=== PATIENT | female | born 1990 | race African-American/Black ===

== ENCOUNTER 2016-09-19 01:43 | Emergency (ER) | payer OTHER ==
--- NOTE | ~2016-09-19 | CT4 ---
[facility] A Service of [facility] RADIOLOGY TEXT RESULTS PATIENT: NOELLE PARISI LOCATION: [place] : [birth year] UNIT #: [id number] AGE: [address]: Dwayne Alston MD SEX: F ORDER DR: [id number] [facility] [place] [facility]. [place], [place] [address] [id number] E MR#: [id number] Acc #: [id number] NAME: NOELLE PARISI : 1990 SEX: F STUDY DATE/TIME: 09/19/2016 2:50 UNIT: [facility] ROOM: STUDY DESCRIPTION: CT Abd and Pelv Wo Cont Attending Physician: Dwayne Alston M.D. Ordering Physician: Dwayne Alston M.D. Primary Care Physician: Primary Care Physician No MEDICAL IMAGING REPORT This report is preliminary unless electronic signature is present EXAM CT abdomen and pelvis without contrast INDICATIONS Right side abdominal pain for the past [address] of the abdomen and pelvis. This CT exam was performed with one or more of the following radiation dose reduction techniques: automatic exposure control, adjustment of mA and/or kV according to patient size, and iterative reconstruction. COMPARISON 07/26/2015 FINDINGS Abdomen without contrast. Included lung bases are clear. The liver, spleen, adrenal glands, pancreas, gallbladder show no acute abnormality. Bowel loops are nondilated. Appendix is normal. There is moderate left hydroureteronephrosis. Pelvis without contrast: Bladder is decompressed. There is a Rdz catheter in place. Possible 5 mm calculus along the superior extent of the Rdz catheter balloon. No other bladder calculus seen. No pelvic mass. No aggressive appearing bone lesion. IMPRESSION 1. Moderate left hydroureteronephrosis. 2. Possible 5 mm calculus in the bladder, just above the Rdz catheter balloon. [facility] A Service of [facility] RADIOLOGY TEXT RESULTS PATIENT: NOELLE PARISI LOCATION: [place] : [birth year] UNIT #: [id number] AGE: [address]: Dwayne Alston MD SEX: F ORDER DR: Dictated by... Rajinder Vasquez M.D. THIS IS AN ELECTRONICALLY VERIFIED REPORT Rajinder Vasquez M.D. at 09/22/2016 7:29 AM Gallo TD: 09/19/2016 06:48 JOB #: [id number] MEDICAL IMAGING REPORT Page 1 of 1 COPY
[~2016-09-19 01:43] MED LIST: CIPRO PO; FLAGYL PO; PHENERGAN SUPP25 MG PR; PRILOSEC PO; SOOTHE262 MG PO; TETRACYCLINE PO; VOLTAREN50 MG PO
[2016-09-19 01:52] LABS: BASOPHIL# 0.1 X10e3 (0-0.3); BASOPHIL% 0.8 % (0-2.5); EOSINOPHIL# 0.2 X10e3 (0-0.7); EOSINOPHIL% 1.4 % (0.0-7.0); HEMATOCRIT 40.9 % (35.0-45.0); HEMOGLOBIN 13.6 gm/dL (12.0-16.0); LYMPHOCYTE# 2.8 X10e3 (1.0-3.5); LYMPHOCYTE% 21.9 % (17.0-45.0); MEAN CELL VOLUME 86.3 FL (83-96); MEAN CORPUSCULAR HEMOGLOBIN 28.7 PG (28-34); MEAN CORPUSCULAR HGB CONC 33.3 g/dL (30-36); MEAN PLATELET VOLUME 7.8 FL (6.5-11.5); MONOCYTE# 0.9 X10e3 (0-1.0); MONOCYTE% 6.9 % (3.0-12.0); NEUTROPHIL# 8.7 X10e3 (1.5-7.1); PLATELET COUNT 304 X10e3 (140-420); RED BLOOD COUNT 4.74 X10e (3.90-5.30); RED CELL DISTRIBUTION WIDTH 13.1 % (11.0-15.5); WHITE BLOOD COUNT 12.6 X10e3 (4.0-10.5)
[2016-09-19 01:53] LABS: DIFF IND NO
[2016-09-19 02:10] LABS: URINE SOURCE CLEAN CATCH
[2016-09-19 02:16] LABS: ALBUMIN SERUM 4.6 g/dL (3.5-5.0); ALKALINE PHOSPHATASE 66 U/L (32-92); ALT (SGPT) 22 U/L (10-40); AST (SGOT) 30 U/L (10-42); BILIRUBIN,TOTAL 0.3 mg/dL (0.2-2.0); BLOOD UREA NITROGEN 10 mg/dL (9-23); CALCIUM SERUM 9.2 mg/dL (8.4-10.2); CARBON DIOXIDE 23 mmol/L (22-31); CHLORIDE 105 mmol/L (100-111); CREATININE SERUM 0.8 mg/dL (0.6-1.4); GLOM FILT RATE Estimated 119.7 mL/min (>60); GLUCOSE FASTING 68 mg/dL (70-110); LIPASE 15 U/L (22-51); POTASSIUM 3.6 mmol/L (3.5-5.1); PROTEIN TOTAL SERUM 8.6 g/dL (6.0-8.3); SODIUM 137 mmol/L (135-145)
[2016-09-19 02:16] LABS: URINE APPEARANCE CLEAR; URINE BILIRUBIN NEG (NEG); URINE BLOOD NEG (NEG); URINE COLOR YELLOW; URINE GLUCOSE NEG (NEG); URINE KETONE NEG (NEG); URINE LEUKOCYTE ESTERASE NEG (NEG); URINE NITRATE NEG (NEG); URINE PH 6.5 (5-8); URINE PROTEIN NEG (NEG); URINE SPECIFIC GRAVITY 1.005 (1.003-1.035); URINE UROBILINOGEN 0.2 MG/DL (NEG)
[2016-09-19 02:20] LABS: CULTURE INDICATED? NO
[2016-09-19 02:20] LABS: BILIRUBIN, DIRECT <0.1 mg/dL (0.0-0.2); BILIRUBIN,INDIRECT 0.2 mg/dL (0.0-0.9)
== END 2016-09-19 03:43 | disposition home or self-care (01) ==
LOC: CED 01:43
PROVIDERS: Emergency Medicine
DX: R33.9 Retention of urine, unspecified (principal); N13.2 Hydronephrosis with renal and ureteral calculous obstruction; F41.9 Anxiety disorder, unspecified; F17.200 Nicotine dependence, unspecified, uncomplicated; Z88.6 Allergy status to analgesic agent; Z88.8 Allergy status to other drugs, medicaments and biological substances; Z79.899 Other long term (current) drug therapy
CPT/HCPCS: 36415; 51702; 74176; 80048; 80076; 81003; 83690; 84703; 85025; 96361; 96374; 96375; 99284; J2270; J2765

== ENCOUNTER 2016-09-21 19:23 | Emergency (ER) | payer OTHER ==
--- NOTE | ~2016-09-21 | CT4 ---
[facility] A Service of [facility] RADIOLOGY TEXT RESULTS PATIENT: NOELLE PARISI LOCATION: [facility] : [birth year] UNIT #: [id number] AGE: [address]: Ada Davila MD SEX: F ORDER DR: [id number] [facility] [address] [facility] [place] [facility]. [place], [place] [address] [id number] E MR#: [id number] Acc #: [id number] NAME: NOELLE PARISI : 1990 SEX: F STUDY DATE/TIME: 09/21/2016 21:52 UNIT: [facility] ROOM: STUDY DESCRIPTION: CT Abd and Pelv Wo Cont Attending Physician: Aad Davila M.D. Ordering Physician: Ada Davila M.D. Primary Care Physician: Primary Care Physician No MEDICAL IMAGING REPORT This report is preliminary unless electronic signature is present EXAM CT abdomen and pelvis, 09/21/2016 at 21:52 INDICATIONS Left flank pain for 1 week. Pain currently 10 out of 10. Recent diagnosis of kidney stone. TECHNIQUE Axial noncontrast images were obtained through the abdomen and pelvis. Multiplanar reformats were obtained. Comparison made with 09/19/2016. This CT exam was performed with one or more of the following radiation dose reduction techniques: automatic exposure control, adjustment of mA and/or kV according to patient size, and iterative reconstruction. FINDINGS ABDOMEN: Lung bases remain clear. The gallbladder is normal. There is persistent mild left hydronephrosis and hydroureter. No definite obstructing stone is seen. No stones are seen within the kidneys. The unenhanced solid organs are otherwise normal. Unopacified GI tract is normal. PELVIS: The bladder is decompressed around a Rdz catheter. No lower ureteral stones are seen. The appendix is normal. The remainder of the unopacified GI tract is normal as well. The uterus is retroflexed. Solid pelvic organs are grossly normal. IMPRESSION 1. Persistent mild left hydronephrosis. No obstructing stones are identified. Previously seen stone near the left UVJ is not identified on the current study. Urinary bladder is decompressed by [facility] A Service of [facility] RADIOLOGY TEXT RESULTS PATIENT: NOELLE PARISI LOCATION: [facility] : [birth year] UNIT #: [id number] AGE: [address]: Ada Davila MD SEX: F ORDER DR: pasquale Rdz. 2. Normal unopacified GI tract including the appendix. Dictated by... Fredy Bui Jr., M.D. THIS IS AN ELECTRONICALLY VERIFIED REPORT Fredy Bui Jr., M.D. at 09/22/2016 6:01 AM PAUL/chago TD: 09/22/2016 04:39 JOB #: [id number] MEDICAL IMAGING REPORT Page 1 of 1 COPY
[2016-09-21 20:33] LABS: BASOPHIL# 0.2 X10e3 (0-0.3); BASOPHIL% 1.3 % (0-2.5); EOSINOPHIL# 0.3 X10e3 (0-0.7); HEMOGLOBIN 13.7 gm/dL (12.0-16.0); LYMPHOCYTE# 2.8 X10e3 (1.0-3.5); LYMPHOCYTE% 20.9 % (17.0-45.0); MEAN CELL VOLUME 86.7 FL (83-96); MEAN CORPUSCULAR HGB CONC 33.5 g/dL (30-36); MEAN PLATELET VOLUME 8.3 FL (6.5-11.5); MONOCYTE# 0.8 X10e3 (0-1.0); MONOCYTE% 5.6 % (3.0-12.0); NEUTROPHIL# 9.5 X10e3 (1.5-7.1); NEUTROPHIL% 70.2 % (40-75); PLATELET COUNT 269 X10e3 (140-420); RED BLOOD COUNT 4.73 X10e (3.90-5.30); RED CELL DISTRIBUTION WIDTH 12.7 % (11.0-15.5); WHITE BLOOD COUNT 13.6 X10e3 (4.0-10.5)
[2016-09-21 20:40] LABS: URINE APPEARANCE CLEAR; URINE BILIRUBIN NEG (NEG); URINE BLOOD NEG (NEG); URINE COLOR YELLOW; URINE GLUCOSE NEG (NEG); URINE KETONE NEG (NEG); URINE LEUKOCYTE ESTERASE NEG (NEG); URINE NITRATE NEG (NEG); URINE PROTEIN NEG (NEG); URINE SPECIFIC GRAVITY 1.001 (1.003-1.035); URINE UROBILINOGEN 0.2 MG/DL (NEG)
[2016-09-21 20:47] LABS: URINE SOURCE CATH
[2016-09-21 20:48] LABS: CULTURE INDICATED? NO
[2016-09-21 20:50] LABS: AMPHETAMINE NEG (NEG); BARBITURATES NEG (NEG); BENZODIAZEPINES POS (NEG); COCAINE NEG (NEG); MARIJUANA POS (NEG); OPIATES POS (NEG); TRICYCLIC ANTIDEPRESSANTS NEG (NEG); U METHADONE NEG (NEG)
[2016-09-21 20:52] LABS: ALBUMIN SERUM 4.7 g/dL (3.5-5.0); ALKALINE PHOSPHATASE 64 U/L (32-92); ALT (SGPT) 17 U/L (10-40); AST (SGOT) 20 U/L (10-42); BILIRUBIN,TOTAL 0.8 mg/dL (0.2-2.0); BLOOD UREA NITROGEN 7 mg/dL (9-23); CALCIUM SERUM 9.4 mg/dL (8.4-10.2); CARBON DIOXIDE 23 mmol/L (22-31); CHLORIDE 102 mmol/L (100-111); CREATININE SERUM 0.7 mg/dL (0.6-1.4); GLOM FILT RATE Estimated 140.5 mL/min (>60); GLUCOSE FASTING 61 mg/dL (70-110); POTASSIUM 3.5 mmol/L (3.5-5.1); PROTEIN TOTAL SERUM 8.7 g/dL (6.0-8.3); SODIUM 135 mmol/L (135-145)
[2016-09-21 20:53] LABS: BILIRUBIN, DIRECT <0.1 mg/dL (0.0-0.2); BILIRUBIN,INDIRECT 0.7 mg/dL (0.0-0.9)
[2016-09-21 20:58] LABS: DIFF IND NO
== END 2016-09-21 23:40 | disposition home or self-care (01) ==
LOC: CED 19:23
PROVIDERS: Emergency Medicine
DX: R33.9 Retention of urine, unspecified (principal)
CPT/HCPCS: 51702; 74176; 80048; 80076; 80307; 81003; 84703; 85025; 96361; 96374; 96375; 99284; J2270; J2550

== ENCOUNTER 2016-09-27 01:04 | Emergency (ER) | payer OTHER ==
[2016-09-27 01:48] LABS: URINE SOURCE CLEAN CATCH
[2016-09-27 02:12] LABS: URINE APPEARANCE CLEAR; URINE BILIRUBIN NEG (NEG); URINE BLOOD NEG (NEG); URINE COLOR YELLOW; URINE GLUCOSE NEG (NEG); URINE KETONE NEG (NEG); URINE LEUKOCYTE ESTERASE TRACE (NEG); URINE NITRATE NEG (NEG); URINE PH 5.5 (5-8); URINE PROTEIN NEG (NEG); URINE UROBILINOGEN 0.2 MG/DL (NEG)
[2016-09-27 02:16] LABS: CULTURE INDICATED? NO
[2016-09-27 02:19] LABS: BASOPHIL# 0.1 X10e3 (0-0.3); BASOPHIL% 0.7 % (0-2.5); DIFF IND YES; EOSINOPHIL# 0.2 X10e3 (0-0.7); EOSINOPHIL% 1.3 % (0.0-7.0); HEMATOCRIT 41.4 % (35.0-45.0); HEMOGLOBIN 13.6 gm/dL (12.0-16.0); LYMPHOCYTE# 2.9 X10e3 (1.0-3.5); LYMPHOCYTE% 18.2 % (17.0-45.0); MEAN CELL VOLUME 86.5 FL (83-96); MEAN CORPUSCULAR HEMOGLOBIN 28.5 PG (28-34); MEAN CORPUSCULAR HGB CONC 32.9 g/dL (30-36); MEAN PLATELET VOLUME 7.8 FL (6.5-11.5); MONOCYTE# 0.8 X10e3 (0-1.0); MONOCYTE% 5.2 % (3.0-12.0); NEUTROPHIL# 11.9 X10e3 (1.5-7.1); NEUTROPHIL% 74.6 % (40-75); PLATELET COUNT 355 X10e3 (140-420); RED BLOOD COUNT 4.78 X10e (3.90-5.30); RED CELL DISTRIBUTION WIDTH 12.8 % (11.0-15.5)
[2016-09-27 02:35] LABS: ALBUMIN SERUM 4.9 g/dL (3.5-5.0); BILIRUBIN, DIRECT 0.1 mg/dL (0.0-0.2); BILIRUBIN,INDIRECT 0.8 mg/dL (0.0-0.9); BILIRUBIN,TOTAL 0.9 mg/dL (0.2-2.0); BUN/CREATININE RATIO 18.33; CALCIUM SERUM 9.4 mg/dL (8.4-10.2); CREATININE SERUM 0.6 mg/dL (0.6-1.4); GLOM FILT RATE Estimated 147.9 mL/min (>60); POTASSIUM 3.7 mmol/L (3.5-5.1); PROTEIN TOTAL SERUM 8.5 g/dL (6.0-8.3)
[2016-09-27 02:43] LABS: URINE SQUAMOUS EPITHELIAL CELL MODERATE /[HPF]; UWBCS1 AUWI 0-2 (0-5)
[2016-09-27 02:57] LABS: PLATELET ESTIMATE NORMAL (NORMAL); RBC NORMAL YES
== END 2016-09-27 04:04 | disposition home or self-care (01) ==
LOC: CED 01:04
PROVIDERS: Emergency Medicine
DX: R33.9 Retention of urine, unspecified (principal); F17.200 Nicotine dependence, unspecified, uncomplicated; R11.2 Nausea with vomiting, unspecified
CPT/HCPCS: 36415; 51702; 80048; 80076; 81003; 82150; 85025; 96361; 96374; 96375; 96376; 99284; J0780; J1200; J2270

== ENCOUNTER 2016-10-10 22:17 | Emergency (ER) | payer OTHER ==
--- NOTE | ~2016-10-10 | CT4 ---
[facility] A Service of [facility] RADIOLOGY TEXT RESULTS PATIENT: NOELLE PARISI LOCATION: [place] : [birth year] UNIT #: [id number] AGE: [address]: Martin Cooney MD SEX: F ORDER DR: [id number] [facility]. [place], [place] [address] [id number] E MR#: [id number] Acc #: [id number] NAME: NOELLE PARISI : 1990 SEX: F STUDY DATE/TIME: 10/11/2016 0:16 UNIT: [facility] ROOM: STUDY DESCRIPTION: CT Abd and Pelv Wo Cont Attending Physician: Rajinder Cooney M.D. Ordering Physician: Driss Gray M.D. Primary Care Physician: No Primary Care Physician MEDICAL IMAGING REPORT This report is preliminary unless electronic signature is present EXAM CT abdomen and pelvis without contrast DATE 10/11/2016 HISTORY 26-year-old female kidney stent placement 10/09/2016. Having severe abdominal pain since that time. History of frequent urinary tract infections, per patient. COMPARISON Noncontrast CT abdomen and pelvis 09/21/2016. PROCEDURE 3 mm noncontrast axial images through the abdomen and pelvis. Enteric contrast was not administered. Sagittal and coronal reformatted images were obtained. This CT exam was performed with one or more of the following radiation dose reduction techniques: automatic control, adjustment of mA and/or kV according to patient size, and iterative reconstruction. FINDINGS ABDOMEN FINDINGS: Single left ureteral double-J stent appears appropriately positioned. No hydronephrosis is seen. No urinary tract stone is identified. No perinephric inflammatory change is evident. The liver, gallbladder, spleen, pancreas and adrenal glands appear within normal limits. Unopacified bowel appears grossly nonthickened, nondilated and noninflamed. The appendix appears normal. Limited evaluation bowel due to the lack of enteric contrast. [facility] A Service [facility] RADIOLOGY TEXT RESULTS PATIENT: NOELLE PARISI LOCATION: [place] : [birth year] UNIT #: [id number] AGE: [address]: Martin Cooney MD SEX: F ORDER DR: PELVIS FINDINGS: Small quantity free fluid is demonstrated within the pelvic cul-de-sac which is increased since the prior examination. The uterus and rectum are normal. IMPRESSION 1. Left ureteral stent appears appropriately positioned. No hydronephrosis or urinary tract stone is seen. No perinephric inflammatory change is identified and the urinary bladder does not appear inflamed, either. 2. There is small quantity free fluid within the pelvic cul-de-sac which is slightly increased since 09/21/2016. 3. The appendix is normal. Dictated by... Ivis Green M.D. THIS IS AN ELECTRONICALLY VERIFIED REPORT Ivis Green M.D. at 10/11/2016 6:01 AM NATHAN/biju TD: 10/11/2016 03:42 JOB #: [id number] MEDICAL IMAGING REPORT Page 1 of 1 COPY
[2016-10-10 23:43] LABS: URINE SOURCE CLEAN CATCH
[2016-10-10 23:46] LABS: BASOPHIL# 0.1 X10e3 (0-0.3); BASOPHIL% 0.8 % (0-2.5); EOSINOPHIL# 0.4 X10e3 (0-0.7); HEMATOCRIT 37.2 % (35.0-45.0); HEMOGLOBIN 12.4 gm/dL (12.0-16.0); LYMPHOCYTE# 2.9 X10e3 (1.0-3.5); LYMPHOCYTE% 20.1 % (17.0-45.0); MEAN CORPUSCULAR HEMOGLOBIN 28.4 PG (28-34); MEAN CORPUSCULAR HGB CONC 33.4 g/dL (30-36); MEAN PLATELET VOLUME 7.7 FL (6.5-11.5); MONOCYTE# 0.6 X10e3 (0-1.0); MONOCYTE% 3.9 % (3.0-12.0); NEUTROPHIL# 10.4 X10e3 (1.5-7.1); NEUTROPHIL% 72.2 % (40-75); PLATELET COUNT 320 X10e3 (140-420); RED BLOOD COUNT 4.38 X10e (3.90-5.30); RED CELL DISTRIBUTION WIDTH 12.6 % (11.0-15.5); WHITE BLOOD COUNT 14.4 X10e3 (4.0-10.5)
[2016-10-10 23:47] LABS: URINE APPEARANCE CLOUDY; URINE BILIRUBIN NEG (NEG); URINE BLOOD 3+ (NEG); URINE COLOR DK YELLOW; URINE GLUCOSE NEG (NEG); URINE KETONE NEG (NEG); URINE LEUKOCYTE ESTERASE 3+ (NEG); URINE NITRATE NEG (NEG); URINE PH 6.5 (5-8); URINE PROTEIN 1+ (NEG); URINE SPECIFIC GRAVITY 1.018 (1.003-1.035)
[2016-10-10 23:48] LABS: DIFF IND NO
[2016-10-10 23:50] LABS: CULTURE INDICATED? YES; URBCS1 AUWI 100-200 /[HPF] (0-2); URINE BACTERIA AUWI 1+ (NEGATIVE); URINE SQUAMOUS EPITHELIAL CELL OCC /[HPF]; UWBCS1 AUWI 50-100 (0-5)
[2016-10-11 00:09] LABS: ALBUMIN SERUM 4.3 g/dL (3.5-5.0); ALKALINE PHOSPHATASE 56 U/L (32-92); ALT (SGPT) 12 U/L (10-40); AST (SGOT) 16 U/L (10-42); BILIRUBIN,TOTAL 0.3 mg/dL (0.2-2.0); BLOOD UREA NITROGEN 10 mg/dL (9-23); CALCIUM SERUM 9.2 mg/dL (8.4-10.2); CARBON DIOXIDE 22 mmol/L (22-31); CHLORIDE 104 mmol/L (100-111); CREATININE SERUM 0.8 mg/dL (0.6-1.4); GLOM FILT RATE Estimated 119.7 mL/min (>60); GLUCOSE FASTING 84 mg/dL (70-110); LIPASE 13 U/L (22-51); POTASSIUM 3.6 mmol/L (3.5-5.1); PROTEIN TOTAL SERUM 7.7 g/dL (6.0-8.3); SODIUM 135 mmol/L (135-145)
[2016-10-11 00:16] LABS: BILIRUBIN, DIRECT <0.1 mg/dL (0.0-0.2); BILIRUBIN,INDIRECT 0.2 mg/dL (0.0-0.9)
== END 2016-10-11 03:10 | disposition hospice, home (50) ==
LOC: CED 22:17
PROVIDERS: Emergency Medicine
DX: R10.12 Left upper quadrant pain (principal); R10.32 Left lower quadrant pain; F17.210 Nicotine dependence, cigarettes, uncomplicated
CPT/HCPCS: 36415; 74176; 80048; 80076; 81003; 83690; 84703; 85025; 87086; 96361; 96374; 96375; 99285; J1170; J2765

== ENCOUNTER 2016-12-19 23:03 | Emergency (ER) | payer OTHER ==
--- NOTE | ~2016-12-19 | CT4 ---
[facility] A Service of [facility] RADIOLOGY TEXT RESULTS PATIENT: NOELLE PARISI LOCATION: [place] : [birth year] UNIT #: [id number] AGE: [address]: Fredy Hedrick MD SEX: F ORDER DR: [id number] [facility]. [place], [place] [address] [id number] E MR#: [id number] Acc #: [id number] NAME: NOELLE PARISI : 1990 SEX: F STUDY DATE/TIME: 12/20/2016 1:42 UNIT: [facility] ROOM: STUDY DESCRIPTION: CT Abd and Pelv Wo Cont Attending Physician: Fredy Hedrick M.D. Ordering Physician: Fredy Hedrick M.D. Primary Care Physician: Primary Care Physician No MEDICAL IMAGING REPORT This report is preliminary unless electronic signature is present EXAM CT abdomen and pelvis without contrast INDICATION Right flank pain for 2 days. History of right stent in kidney and frequent urinary tract infections. COMPARISON 10/11/2016. TECHNIQUE Axial 3 mm images were obtained through the abdomen and pelvis without IV or oral contrast. This CT examination was performed with one or more of the following radiation dose reduction techniques: automatic exposure control, adjustment of mA and/or kV according to patient size, and iterative reconstruction. FINDINGS Lung bases are clear. The liver, gallbladder, spleen, pancreas, adrenal glands and kidneys are normal in appearance. There are no urinary stents visible. There is no hydronephrosis. No ureteral stones are visible. The bowel including the appendix appears normal. The aorta is normal in size. There is no adenopathy. The uterus, adnexal regions and bladder are normal. The bones are unremarkable. IMPRESSION 1. There is no hydronephrosis and no ureteral stone is visible. 2. Normal appendix. 3. Otherwise normal study. Dictated by... [facility] A Service of [facility] RADIOLOGY TEXT RESULTS PATIENT: NOELLE PARISI LOCATION: [place] : [birth year] UNIT #: [id number] AGE: [address]: Fredy Hedrick MD SEX: F ORDER DR: Milan Donahue M.D. THIS IS AN ELECTRONICALLY VERIFIED REPORT Milan Donahue M.D. at 12/20/2016 8:20 PM ROMI/annie TD: 12/20/2016 15:15 JOB #: [id number] MEDICAL IMAGING REPORT Page 1 of 1 COPY
[2016-12-20 01:14] LABS: URINE SOURCE CLEAN CATCH
[2016-12-20 01:25] LABS: URINE APPEARANCE CLEAR; URINE BILIRUBIN NEG (NEG); URINE BLOOD NEG (NEG); URINE COLOR YELLOW; URINE GLUCOSE NEG (NEG); URINE KETONE NEG (NEG); URINE LEUKOCYTE ESTERASE 1+ (NEG); URINE NITRATE NEG (NEG); URINE PH 6.5 (5-8); URINE PROTEIN NEG (NEG); URINE SPECIFIC GRAVITY 1.019 (1.003-1.035)
[2016-12-20 01:27] LABS: URBCS1 AUWI 0-2 /[HPF] (0-2); URINE BACTERIA AUWI NEG (NEGATIVE); URINE SQUAMOUS EPITHELIAL CELL OCC /[HPF]; UWBCS1 AUWI 0-2 (0-5)
[2016-12-20 01:29] LABS: CULTURE INDICATED? NO
== END 2016-12-20 02:20 | disposition home or self-care (01) ==
LOC: CED 23:03
PROVIDERS: Emergency Medicine
DX: S39.012A Strain of muscle, fascia and tendon of lower back, initial encounter (principal); R11.10 Vomiting, unspecified; F17.200 Nicotine dependence, unspecified, uncomplicated; Z88.8 Allergy status to other drugs, medicaments and biological substances; X58.XXXA Exposure to other specified factors, initial encounter; Y99.9 Unspecified external cause status
CPT/HCPCS: 36415; 51702; 74176; 81003; 84703; 96372; 99285; J2270; J2550